=== PATIENT | male | born 1970 | race Caucasian/White ===

== ENCOUNTER 2016-07-31 13:20 | Emergency (ER) | payer MEDICARE, MEDICAID ==
[2016-07-31] MEDS ORDERED: ACETAMINOPHEN 325 MG TAB ONE (16:49)
== END 2016-07-31 17:59 | disposition home or self-care (01) ==
LOC: ER 13:32
DX: Z71.1 Person with feared health complaint in whom no diagnosis is made (principal); Z79.899 Other long term (current) drug therapy; Z91.040 Latex allergy status; G80.9 Cerebral palsy, unspecified; G40.909 Epilepsy, unspecified, not intractable, without status epilepticus
CPT/HCPCS: 36415; 80053; 81003; 82274; 85025; 85610; 86850; 86870; 86900; 86901

== ENCOUNTER 2016-08-02 16:14 | Emergency (ER) | payer MEDICARE, MEDICAID ==
[2016-08-02] MEDS ORDERED: ACETAMINOPHEN 325 MG TAB ONE (21:48)
[2016-08-02] MEDS ORDERED: ONDANSETRON ODT 4 MG TAB ONE (21:49)
[2016-08-02] MEDS ORDERED: ACETAMIN/BUTALB/CAFF ONE (23:03)
== END 2016-08-02 23:14 | disposition home or self-care (01) ==
LOC: ER 16:14
DX: R51 Headache (principal); Z79.899 Other long term (current) drug therapy; Z91.040 Latex allergy status; G80.9 Cerebral palsy, unspecified; G40.909 Epilepsy, unspecified, not intractable, without status epilepticus

== ENCOUNTER 2016-08-04 13:32 | Emergency (ER) | payer MEDICARE, MEDICAID ==
[2016-08-04] MEDS ORDERED: ACETAMINOPHEN 325 MG TAB ONE (14:43)
[2016-08-04] MEDS ORDERED: ONDANSETRON ODT 4 MG TAB ONE (14:44)
== END 2016-08-04 16:36 | disposition home or self-care (01) ==
LOC: ER 13:32
DX: R51 Headache (principal); Z79.899 Other long term (current) drug therapy; Z91.040 Latex allergy status; G80.9 Cerebral palsy, unspecified; G40.909 Epilepsy, unspecified, not intractable, without status epilepticus

== ENCOUNTER 2016-08-18 14:00 | Emergency (ER) | payer MEDICARE, MEDICAID ==
[2016-08-18] MEDS ORDERED: KETOROLAC 30 MG/ML VIAL ONE (17:05)
== END 2016-08-18 17:30 | disposition home or self-care (01) ==
LOC: EDBD → ER 14:00
DX: G43.C0 Periodic headache syndromes in child or adult, not intractable (principal); Z91.040 Latex allergy status; Z79.899 Other long term (current) drug therapy
CPT/HCPCS: 36415; 80047; 85014; 96372; 99283; J1885